=== PATIENT | male | born 1945 | race Caucasian/White ===

== ENCOUNTER → 2017-04-21 | Outpatient (CLI) | payer MEDICARE, BC ==
[~2017-04-21] MED LIST: ASPI-621 PO; ATOR20TA PO; GABA300C10 PO; LISI5TAB7 PO; LOSA50TA6 PO; METO25TA91 PO; OXYC-302 PO; TICA90TA PO; TIZA2CAP2 PO
== END | disposition home or self-care (01) ==
LOC: CFH 07:22
PROVIDERS: ATTEND Licensed Practical Nurse
DX: Z87.891 Personal history of nicotine dependence (principal)
CPT/HCPCS: 93978